=== PATIENT | female | born 1985 | race Native Hawaiian/Other Pacific Islander ===

== ENCOUNTER 2022-05-27 09:05 | Outpatient (CLI) | payer OTHER ==
[2022-05-27 09:33] LABS: PLATELET COUNT 321 K/uL (152-353)
[2022-05-27 09:58] LABS: POTASSIUM 4.4 mmol/L (3.6-5.2)
== END 2022-05-27 19:08 | disposition home or self-care (01) ==
LOC: LABW 09:05
PROVIDERS: ATTEND Nurse Practitioner Family
DX: I10 Essential (primary) hypertension (principal)
CPT/HCPCS: 36415; 80053; 82550; 82553; 84484; 85027; 93005